=== PATIENT | male | born 1955 | race African-American/Black ===

== ENCOUNTER 2018-01-21 13:36 | Emergency (ER) | payer MEDICAID ==
--- NOTE | 2018-01-21 13:52 | DR.GENAD ---
HPI - HPI Comment HPI Comment: LOWER LIP SWELLING NOTED FEW HOURS AGO. TAKES LISINOPRIL AND HAVE FOR FEW YEARS. NO NEW MED OR NEW FOOD EATEN. THROAT SCATCHY. NO SOB. - Complaint/Symptoms Chief Complaint Doctors Comments: SWOLLEN LOWER LIP TIMES FEW HOURS. - Nurses notes reviewed Nurses Notes Review: Yes - Source History Provided: Patient - Mode of Arrival Mode of Arrival: Ambulatory - Timing Came on: Suddenly - Duration Duration: Constant Duration: Hours - Severity Severity: Moderate PMH - PMH Past Medical History: Alzheimers, Arthritis, COPD, Hypertension Past Surgical History: Yes Surgical History: Abdominal Surgery - Family History Family Medical History: Diabetes Mellitus, Hypertension - Social History Do you use any recreational Drugs:: No ROS - Review of Systems Constitutional: No Symptoms Reported Eyes: No Symptoms Reported ENTM: Mouth Swelling (LOWER LIP SWOLLEN.), Throat Pain (THROAT SCATCHY.) Respiratoy: No Symptoms Reported Cardiovascular: No Symptoms Reported Gastrointestinal/Abdominal: No Symptoms Reported Genitourinary: No Symptoms Reported Neurological: No Symptoms Reported Musculoskeletal: No Symptoms Reported Integumentary: No Symptoms Reported Hematologic/Lymphatic: No Symptoms Reported Endocrine: No Symptoms Reported All Other Systems: Reviewed and Negative PE - Vital Signs Vitals: Temperature 98.8 F Pulse Rate [Brachial] 89 Pulse Rate 74 Respiratory Rate 20 Blood Pressure [Left Arm] 188/95 Blood Pressure 191/99 O2 Sat by Pulse Oximetry 99 - General Limitations: No Limitations General Appearance: Alert - Head Head Exam: Normal Inspection - Eyes Eye exam: Normal Appearance - ENT ENT Exam: Normal External Ear Exam External Ear Exam: Normal External Inspection TM/Canal Exam: Bilateral Normal Nose Exam: Normal Nose Exam - Neck Neck Exam: Trachea Midline MDM - Differential Diagnosis Differential Diagnosis: ANGIOEDEMA, ALLERGIC REACTION Course - Treatment Treatment: SEE ORDES IM EPI, IV BENADRYL AND SOLUMEDROL IN ED. SWELLING DECREASING. - Reevaluation 1st: Improved - Education/Counseling Education/Counseling: Patient, Education Educated On: Treatment, Diagnosis, Needs for Follow Up - Diagnosis Discharge Problem: Angioedema Qualifiers: Encounter type: initial encounter Qualified Code(s): T78.3XXA - Angioneurotic edema, initial encounter Allergic reaction Qualifiers: Encounter type: initial encounter Qualified Code(s): T78.40XA - Allergy, unspecified, initial encounter - Discharge Plan Disposition: HOME, SELF-CARE Condition: Stable Prescriptions: Clonidine HCl [CATAPRES 0.1 MG TAB *] 0.1 mg PO BID #60 tab Hydroxyzine Pamoate [Vistaril] 25 mg PO TID PRN #20 cap PRN Reason: Methylprednisolone Dosepak 4Mg [MEDROL DOSEPAK (4 mg tab x 21)] 1 dena PO ONCE # 1 dena - Follow ups/Referrals Follow ups/Referrals: Vicky HERNANDEZ [Primary Care Provider] - 3 days - Instructions Instructions: Angioedema, [id number], Allergies, [id number] Additional Instructions: RETURN TO ED IF WORSE. D/C LISINOPRIL
[2018-01-21 13:54] VITALS: BMI 39.0
[2018-01-21] MEDS ORDERED: SOLU-Medrol 125 MG VIAL ONE ×2 (14:38→18:19)
[2018-01-21] MEDS ORDERED: BENADRYL INJ 50 MG VIAL ONE (14:38)
[2018-01-21] MEDS ORDERED: NS 1000 ML 1,000 ML ONE (14:39)
[2018-01-21] MEDS ORDERED: ADRENALINE CHL INJ ONE (14:39)
[2018-01-21] MEDS ORDERED: ADRENALINE CHL INJ IM ONE (14:52)
[2018-01-21] MEDS ORDERED: BENADRYL INJ 50 MG VIAL IVP ONE (14:52)
[2018-01-21] MEDS ORDERED: SOLU-Medrol 125 MG VIAL IVP ONE ×2 (14:52→17:59)
[2018-01-21] MEDS ORDERED: NS 1000 ML 1,000 ML IV SCH (15:00)
[2018-01-21] MEDS ORDERED: VISTARIL PO ONE ×2 (17:59→18:19)
[2018-01-21 18:32] VITALS: BP 188/95
== END 2018-01-21 18:35 | disposition home or self-care (01) ==
LOC: ER 14:00
DX: T78.3XXA Angioneurotic edema, initial encounter (principal); T78.40XA Allergy, unspecified, initial encounter
CPT/HCPCS: 90472; 96365; 96367; 96372; 96374; 96375; 99282; 99283; A4222; Q0177; J0170; J1200; J2930

== ENCOUNTER 2018-04-17 07:44 | Emergency (ER) | payer MEDICAID ==
[2018-04-17 07:53] VITALS: BMI 39.0
--- NOTE | 2018-04-17 08:25 | DR.GENAD ---
HPI - PCP Primary Care Physician: DAVID SALGADO - Complaint/Symptoms Chief Complaint Doctors Comments: I agree with statement as written. Patient was given lab slip earlier last week but he did not get it done. He denies cardiovascular disease but admits to being put on a "pump" at last doctors visit. He has greater than a thirty year history of smokeing atleast one pack per day. He denies SOB, but his ambulation is limited by his right hip; needs replacement but no insurance. Lower extremity edema for several weeks. No orthopnea, PND or dyspnea. Chief Complaint:: PT C/O > SWELLING TO HIS LEFT LEG FOR A MONTH AND PT STATES " I HAVE BEEN TAKING MY B/P MEDS LIKE I SHOULD AND DAVID SALGADO TOOK MY WATER OUT OF MY BP MEDS AND I HAVE BEEN SWELLNG SINCE THAN AND IN MY THIGH". Self Treatment fo Chief Complaint: PT C/O NON TAKING HIS BP MEDS AND HE DOES NOT KNOW WHAT MEDS HE TAKES AND PT C/O " DAVID SALGADO SAID I DON'T NEED THE WATER PILL" - Source History Provided: Patient - Mode of Arrival Mode of Arrival: Ambulatory - Timing Onset of Chief Complaint: 03/18/18 PMH - PMH Past Medical History: Yes Past Medical History: Alzheimers, Arthritis, COPD, Hypertension Past Surgical History: Yes Surgical History: Abdominal Surgery - Family History History of Family Medical Conditions: Yes Family Medical History: Diabetes Mellitus, Hypertension - Social History Does patient currently use any type of tobacco product: Yes Have you used tobacco products in the last 12 months: Yes Type of Tobacco Use: Cigarettes How many years tobacco product used: 20 Does any household member use tobacco: No Alcohol Use: None Do you use any recreational Drugs:: No Lives With: Family Lives Where: Home - infectious screening In the last 2 months have you had wt loss of >10#?: NO Have you had fever, night sweats or hemotysis?: No Have you traveled outside the country in the last 6 months?: No Isolation: Standard ROS - Review of Systems Constitutional: negative: Diaphoresis Eyes: No Symptoms Reported ENTM: No Symptoms Reported Respiratoy: No Symptoms Reported Cardiovascular: No Symptoms Reported. negative: Chest Pain Gastrointestinal/Abdominal: No Symptoms Reported Genitourinary: No Symptoms Reported Neurological: No Symptoms Reported Musculoskeletal: No Symptoms Reported, Other (lower extremity edema) Integumentary: No Symptoms Reported Hematologic/Lymphatic: No Symptoms Reported Endocrine: No Symptoms Reported Psychiatric: No Symptoms Reported All Other Systems: Reviewed and Negative PE - Vital Signs Vitals: Temperature 96.9 F Pulse Rate [Right Brachial] 80 Pulse Rate 55 Respiratory Rate 18 Blood Pressure [Left Arm] 159/83 Blood Pressure 202/109 O2 Sat by Pulse Oximetry 99 - General Limitations: negative: No Limitations General Appearance: Alert, In No Apparent Distress - Head Head Exam: Normal Inspection, Atraumatic - Eyes Eye exam: Normal Appearance, PERRL, EOMI - ENT ENT Exam: Normal Exam, Normal Oropharynx External Ear Exam: Normal External Inspection TM/Canal Exam: Bilateral Normal Nose Exam: Normal Nose Exam Mouth Exam: Normal Inspection Throat Exam: Normal Inspection - Neck Neck Exam: Normal Inspection - Chest Chest Inspection: Normal Inspection, Symmetric Chest Wall Rise - Respiratory Respiratory Exam: Normal Lung Sounds Bilat Respiratory Exam: Bilateral Clear to Auscultation - Cardiovascular Cardiovascular Exam: Regular Rate, Normal Rhythm - Abdominal Exam Abdominal Exam: Normal Inspection, Normal Bowel Sounds, Distention. negative: Tenderness Abdominal Tenderness: negative: RUQ, RLQ, LUQ, LLQ, Epigastrium, Suprapubic, Diffuse, Mild, Moderate, Severe, Other - Extremities Extremities Exam: Normal Inspection, Full ROM, Normal Capillary Refill, Edema (2 + pitting ). negative: Joint Swelling - Back Back Exam: Normal Inspection, Full ROM - Neurologic Neurological Exam: Alert, Oriented X3, CN II-XII Intact - Psychiatric Psychiatric Exam: Normal Affect, Normal Mood - Skin Skin Exam: Warm, Dry, Intact Course - Reevaluation 1st: Unchanged ROR - Labs Reviewed Laboratory Results Reviewed?: Yes (D Dimer 607) Result Diagrams: 04/17/18 08:39 04/17/18 08:39 Laboratory: WBC 4.2 X10^3/uL (3.6-10.0) 04/17/18 08:39 RBC 4.45 X10^6/uL (4.7-6.0) L 04/17/18 08:39 Hgb 14.6 g/dL (13.5-18.0) 04/17/18 08:39 Hct 42.1 % (42.0-54.0) 04/17/18 08:39 MCV 94.7 fL (80.0-100.0) 04/17/18 08:39 MCH 32.9 pg (27.0-34.0) 04/17/18 08:39 MCHC 34.7 g/dL (33.0-35.0) 04/17/18 08:39 RDW 12.7 % (11.6-16.5) 04/17/18 08:39 Plt Count 156 X10^3/uL (150.0-450.0) 04/17/18 08:39 MPV 6.6 fL (7.4-11.0) L 04/17/18 08:39 Neut % (Auto) 69.6 % (42.0-75.0) 04/17/18 08:39 Lymph % (Auto) 20.4 % (21.0-51.0) L 04/17/18 08:39 [place] % (Auto) 7.2 % (0.0-13.0) 04/17/18 08:39 Eos % (Auto) 2.3 % (0.9-2.9) 04/17/18 08:39 Baso % (Auto) 0.5 % (0.2-1.0) 04/17/18 08:39 Neut # (Auto) 2.9 x10^3/uL (2.2-4.8) 04/17/18 08:39 Lymph # (Auto) 0.9 X10^3/uL (1.3-2.9) L 04/17/18 08:39 [place] # (Auto) 0.3 x10^3/uL (0.3-0.8) 04/17/18 08:39 Eos # (Auto) 0.1 x10^3/uL (0.0-0.2) 04/17/18 08:39 Baso # (Auto) 0.0 X10^3/uL (0.0-0.1) 04/17/18 08:39 Absolute Nucleated RBC 0.0 /100WBC 04/17/18 08:39 D-Dimer 607 ng/mL (0-400) H* 04/17/18 08:33 Sodium 140 mmol/L (136-145) 04/17/18 08:39 Corrected Sodium TNP 04/17/18 08:39 Potassium 4.6 mmol/L (3.5-5.1) 04/17/18 08:39 Chloride 105 mmol/L (98-107) 04/17/18 08:39 Carbon Dioxide 29.3 mmol/L (21-32) 04/17/18 08:39 BUN 8 mg/dL (7-18) 04/17/18 08:39 Creatinine 1.23 mg/dL (0.70-1.30) 04/17/18 08:39 Est GFR (MDRD) Af Amer > 60 (>60) 04/17/18 08:39 Est GFR (MDRD) Non-Af > 60 (>60) 04/17/18 08:39 Glucose 103 mg/dL (65-99) H 04/17/18 08:39 Hemoglobin A1c 4.4 % 04/17/18 08:39 Calcium 8.3 mg/dL (8.5-10.1) L 04/17/18 08:39 Corrected Calcium TNP 04/17/18 08:39 Total Bilirubin 0.40 mg/dL (0.2-1.0) 04/17/18 08:39 AST 12 Units/L (15-37) L 04/17/18 08:39 ALT 16 Units/L (12-78) 04/17/18 08:39 Alkaline Phosphatase 91 Units/L (46-116) 04/17/18 08:39 Total Protein 7.4 g/dL (6.4-8.2) 04/17/18 08:39 Albumin 3.4 g/dL (3.4-5.0) 04/17/18 08:39 Globulin 4.0 g/dL (2.5-4.5) 04/17/18 08:39 Albumin/Globulin Ratio 0.9 Ratio (1.1-2.1) L 04/17/18 08:39 - XRAY XRAY Interpreted by: Radiologist (Chest CTA: negative for pulmonary embolus.Lower extremity duplex venous ultrasound: negative for left lower extremity DVT. Chest: PA/Lat:Moderate hyperinflation is noted. Mild to moderate cardiomegaly is present. Moderate tortuosity of the aorta is present. Moderate thoracic spondylosis is noted. Impressions: Findings suggestive of chronic obstructive pulmonary disease. Mild to moderate cardiomegaly without evidence of failure.) - Diagnosis Discharge Problem: Mild-moderate Cardiomegaly w/o Failure, Negative DVT, Lower extremity edema - Discharge Plan Condition: Stable - Follow ups/Referrals Follow ups/Referrals: NFD,None [Primary Care Provider] - 3 days - Instructions
[2018-04-17] MEDS ORDERED: CATAPRES TAB 0.2 MG PO ONE (08:29)
[2018-04-17] MEDS ORDERED: CATAPRES TAB 0.2 MG ONE (08:31)
[2018-04-17 08:44] LABS: BASOPHILS % (AUTO) 0.5 % (0.2-1.0); EOSINOPHILS # (AUTO) 0.1 x10^3/uL (0.0-0.2); EOSINOPHILS % (AUTO) 2.3 % (0.9-2.9); HEMATOCRIT 42.1 % (42.0-54.0); HEMOGLOBIN 14.6 g/dL (13.5-18.0); LYMPHOCYTES # (AUTO) 0.9 X10^3/uL (1.3-2.9); LYMPHOCYTES % (AUTO) 20.4 % (21.0-51.0); MEAN CORPUSCULAR HEMOGLOBIN 32.9 pg (27.0-34.0); MEAN CORPUSCULAR HGB CONC 34.7 g/dL (33.0-35.0); MEAN CORPUSCULAR VOLUME 94.7 fL (80.0-100.0); MEAN PLATELET VOLUME 6.6 fL (7.4-11.0); MONOCYTES # (AUTO) 0.3 x10^3/uL (0.3-0.8); MONOCYTES % (AUTO) 7.2 % (0.0-13.0); NEUTROPHILS # (AUTO) 2.9 x10^3/uL (2.2-4.8); NEUTROPHILS % (AUTO) 69.6 % (42.0-75.0); PLATELET COUNT 156 X10^3/uL (150.0-450.0); RED BLOOD COUNT 4.45 X10^6/uL (4.7-6.0); RED CELL DISTRIBUTION WIDTH 12.7 % (11.6-16.5); WHITE BLOOD COUNT 4.2 X10^3/uL (3.6-10.0)
[2018-04-17 08:56] LABS: HEMOGLOBIN A1C 4.4 %
--- NOTE | 2018-04-17 08:58 | RAD ---
HISTORY: Left lower extremity swelling. Hypertension. COPD. Study: PA and lateral chest Comparison: None Findings: Moderate hyperinflation is noted. [id number] cardiomegaly is present. Moderate tortuosity of the aorta is present. Moderate thoracic spondylosis is noted. IMPRESSION: 1. Findings suggestive of chronic obstructive pulmonary disease. 2. [id number] cardiomegaly without evidence of failure. Reported By:
[2018-04-17 09:01] LABS: ALANINE AMINOTRANSFERASE 16 Units/L (12-78); ALBUMIN 3.4 g/dL (3.4-5.0); ALKALINE PHOSPHATASE 91 Units/L (46-116); ASPARTATE AMINO TRANSFERASE 12 Units/L (15-37); BLOOD UREA NITROGEN 8 mg/dL (7-18); CALCIUM 8.3 mg/dL (8.5-10.1); CARBON DIOXIDE 29.3 mmol/L (21-32); CHLORIDE 105 mmol/L (98-107); CREATININE 1.23 mg/dL (0.70-1.30); SODIUM 140 mmol/L (136-145); TOTAL PROTEIN 7.4 g/dL (6.4-8.2); eGFR BLACK RACES > 60 (>60); eGFR NON BLACK RACES > 60 (>60)
[2018-04-17 09:40] VITALS: BP 159/83
[2018-04-17] MEDS ORDERED: NS 500 ML IV 500 ML IV ONE (10:03)
--- NOTE | 2018-04-17 10:36 | CT ---
History: COPD, hypertension, left leg swelling Study: CTA chest Findings: Thin-section helical CT imaging through the chest is performed during the intravenous admin istration of 99 mL of Omnipaque 350. Coronal and sagittal MIPS images are submitted as well. There is excellent opacification of the pulmonary artery's with no filling defect or vascular cut off. The th oracic aorta is normal in caliber. Lungs and pleural spaces are clear. Visualized upper abdominal str uctures appear anatomically normal. Advanced spondylosis of the thoracic spine with resulting ankylos is is demonstrated. Impression: No evidence of pulmonary embolus. Reported By:
--- NOTE | 2018-04-17 10:58 | VAS ---
HISTORY: Left leg swelling. Study: Left lower extremity duplex venous ultrasound. Comparison: None. TECHNIQUE: Multiple chris scale and color flow Doppler images of the deep venous system were obtained of the left lower extremity. FINDINGS: The deep venous system of the left lower extremity was evaluated from the level of the common femoral vein through the popliteal vein. Normal color flow and augmentation can be observed. In addition, normal compression is seen throughout the deep venous system. IMPRESSION: Negative for left lower extremity DVT. Reported By:
[2018-04-17 11:30] LABS: BILIRUBIN,URINE NEGATIVE (NEGATIVE); BLOOD/HEMOGLOBIN,URINE NEGATIVE (NEGATIVE); GLUCOSE, URINE NEGATIVE (NEGATIVE); KETONES,URINE NEGATIVE (NEGATIVE); LEUKOCYTE ESTERASE ,URINE NEGATIVE (NEGATIVE); NITRITES,URINE NEGATIVE (NEGATIVE); PROTEIN,URINE NEGATIVE (NEGATIVE); UROBILINOGEN,URINE 1+ (NORMAL)
[2018-04-17 11:34] LABS: APPEARANCE,URINE CLEAR (CLEAR); COLOR,URINE YELLOW (YELLOW)
[2018-04-17 11:40] LABS: BACTERIA,URINE NEGATIVE /HPF (NEGATIVE); RBC,URINE NONE SEEN /HPF (NONE SEEN); SQUAMOUS EPITHELIAL CELL,UR RARE /HPF (NEGATIVE)
== END 2018-04-17 12:16 | disposition home or self-care (01) ==
LOC: ER 07:55
DX: I51.7 Cardiomegaly (principal); R60.0 Localized edema
CPT/HCPCS: 36415; 71046; 71275; 80053; 81001; 83036; 85025; 85378; 93971; 96365; 99283; A4222